=== PATIENT | male | born 2005 | race Caucasian/White ===

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

== ENCOUNTER 2024-11-05 18:22 | Emergency (ER) | payer OTHER, SELFPAY ==
--- NOTE | ~2024-11-05 | XR_ITS ---
XR chest 2V Ordering provider: Uday Red APRN History: 19 years Male with . wheezing, cough for 2 weeks, hx asthma . Comparison: None. FINDINGS: MEDIASTINUM: The cardiac silhouette is not enlarged. LUNGS: Hyperinflated lungs. No infiltrates, effusions or pneumothorax. OTHER: Lucency projected over the upper abdomen is most likely in the posterior sulcus of the lungs. No definite free air under the diaphragm. IMPRESSION: No acute cardiopulmonary pathology. Reviewed, dictated and finalized at location A.
[2024-11-05 18:37] VITALS: BP 116/63; PULSE 73; RESP 16; TEMP 36.4; O2SAT 99
[2024-11-05 18:50] VITALS: PULSE 73; RESP 16; O2SAT 99
[2024-11-05] MEDS: IPRATROPIUM 0.5 MG/ALBUTEROL SULFATE 2.5 MG AMPUL.NEB 3 ML INHALATION ×2 (19:36→20:12)
[2024-11-05] MEDS: methylPREDNISolone SOD SUCC 125 MG VIAL IM (20:13)
[2024-11-05 20:15] VITALS: PULSE 76; RESP 18; O2SAT 100
--- NOTE | 2024-11-05 20:27 | ED_ITS ---
HPI - URI/Sore Throat General Chief Complaint: Upper Respiratory Infection Stated Complaint: cough Source: patient Mode of arrival: ambulatory Limitations: no limitations History of Present Illness HPI Narrative: 19-year-old male presents [facility] complaining of a cough for the last month. Patient reports he thought he had upper respiratory symptoms that turned into a sinus infection. Patient had a leftover Z-Julio and finish the course 2 days ago and states that is upper respiratory symptoms have improved. Patient reports still having a cough and feeling wheezy. Patient does have a history of asthma and takes inhalers as directed. Patient denies any shortness of breath, or chest pain. Patient denies any fevers, body aches, chills, nausea, vomiting, any other symptoms. Related Data Home Medications Medication Instructions Recorded Confirmed Last Taken Type albuterol sulfate 90 mcg/actuation 1 inh inhalation Q4H 06/14/23 11/20/23 Unknown History aerosol inhaler cetirizine 10 mg tablet (Zyrtec) 10 mg PO DAILY PRN Allergic 06/14/23 11/20/23 Unknown History Symptoms Allergies Allergy/AdvReac Type Severity Reaction Status Date / Time lactase (From Dairy Aid) Allergy Anaphylaxis Verified 11/05/24 18:58 Review of Systems Review of Systems: CONSTITUTIONAL: Denies fever, chills, body aches, or sweats. EYES: Denies visual changes, redness, or discharge. ENT: Negative for for rhinorrhea, congestion, sore throat, or otalgia. CARDIOVASCULAR: Denies chest pain, palpitations, or edema. RESPIRATORY: Positive for cough and wheezing. Negative for dyspnea. GASTROINTESTINAL: Denies abdominal pain, nausea, vomiting, or diarrhea. GENITOURINARY: Denies dysuria or hematuria. SKIN: Denies rash or itching. MUSCULOSKELETAL: Denies back pain, joint pain, or myalgia. NEUROLOGIC: Denies headache, numbness, or weakness. PSYCHIATRIC: Denies anxiety or depression. All other systems reviewed are negative, except as documented in HPI. COUNTS INCLUDE 234 BEDS AT THE [facility] Past Medical History Medical History Aftercare following surgery of teeth, oral cavity or digestive system (~2019) Canine tooth pulled down Allergies Asthma Family History Family History Father Asthma Mother Asthma Grandparent Liver cancer Social History Social History Social History: Caffeine-Coffee daily Smoking status: Never smoker Alcohol intake: current Alcohol use details: 2-3x weekly, vodka,beer Substance use: never Substance use type: does not use Do You Feel Safe in your Home?: Yes Lack of Transportation: No Lack of Food: Never True Current Housing: I Have Housing Concerned About Future Housing: No Difficulty Paying Gas/Electric Bills: No Difficulty Paying for Meds: No Currently Unemployed: No Education: High School Diploma/GED Difficulty w/ Childcare or Family Care: No Living arrangements: with friend(s) Occupation/Education: student Gender identity (if verbalized by the patient): Male Agree to blood products: Yes Comments At the time of my signature, I reviewed and agree with the nursing past medical, surgical, social, and family history. There is no relevant family history pertinent to the patient complaint. Exam Narrative: GENERAL: This is a well-nourished, well-developed adult, in no apparent distress. They are non ill-appearing, nontoxic appearing. HEAD: normocephalic, atraumatic. EYES: Sclera clear/white. Vision is grossly intact. Conjunctiva normal bilaterally. Extraocular movements intact. EARS: External ears normal, auditory canals clear and without drainage, TMs without erythema or perforation. Hearing grossly intact. NOSE: External nose normal with no obvious nasal discharge, nasal turbinates without redness or swelling, no rhinorrhea. THROAT: Mucous membranes moist, posterior pharynx without redness or swelling. No exudate Uvula is midline. Postnasal drip present. NECK: Neck supple, non-tender without lymphadenopathy, masses or thyromegaly. CARDIOVASCULAR: Regular rate and rhythm without murmurs, gallops, or rubs. RESPIRATORY: Expiratory wheezes heard throughout patient's lungs. Breath sounds equal bilaterally. No rales, or rhonchi. Respiratory rate normal, respiratory effort nonlabored, no respiratory distress, no accessory muscle use, no retractions. SKIN: warm, Dry, intact with no suspicious lesions or rash, good texture and turgor. NEURO: awake, alert, and oriented to person, place and time. There were no obvious focal neurologic abnormalities. EXTREMITIES: No joint tenderness, effusion, or edema noted. BACK: Nontender without deformity. Course Course Emergency Course: Portions of this record may have been created with voice recognition software Level of Care: Express Care Visit Vital Signs Vital signs: Vital Signs Temperature 97.6 F 11/05/24 18:37 Pulse Rate 73 11/05/24 18:37 Respiratory Rate 16 11/05/24 18:37 Blood Pressure 116/63 11/05/24 18:37 Pulse Oximetry 99 11/05/24 18:37 Temperature 97.6 F 11/05/24 18:37 Pulse Rate 73 11/05/24 18:37 Respiratory Rate 16 11/05/24 18:37 Blood Pressure 116/63 11/05/24 18:37 Pulse Oximetry 99 11/05/24 18:37 Oxygen Delivery Room Air 11/05/24 18:50 MDM - URI/Sore Throat MDM Narrative Medical decision making narrative: Chest x-ray is negative for any acute findings or pneumonia. Patient given 2 nebulizer treatments and a shot of Solu-Medrol for symptoms. Patient reports feeling much better. Repeat auscultation shows improved aeration and decreased wheezing and patient's lungs. Will send patient home on prednisone starting tomorrow. Will refill patient's prescription for albuterol nebulizer. Likely patient has an asthma exacerbation. Discussed physical exam findings. Advised supportive measures and signs/symptoms to go to the ER. Pt is appropriate for outpt treatment and f/u. Differential Diagnosis Differential diagnosis: Likely bronchitis and other (Asthma, pneumonia) Imaging Data Radiologist's impression: ITS Impressions Chest X-Ray 11/05/24 19:32 IMPRESSION: No acute cardiopulmonary pathology. Discharge Plan Discharge Clinical Impression: Asthma exacerbation Qualifiers: Asthma severity: moderate Asthma persistence: persistent Qualified Code(s): J45.41 - Moderate persistent asthma with (acute) exacerbation Patient Disposition: Home Condition: Stable Instructions: Asthma (ED) Additional Instructions: Chest x-ray was negative for any pneumonia or any other acute findings. Continues your inhaler at home as directed. I Have refilled her prescription for your albuterol nebulizer. Use as directed. Start the prednisone tomorrow. Take it in the morning and with food. Follow-up with primary care provider for further management of your asthma in 3-5 days. If your symptoms worsen, you develop worsened shortness of breath, wheezing, fevers, unable to speak in full sentences, chest pain, or any other concerns please go to the ER immediately Patient Language: Wolof Prescriptions: New albuterol sulfate 2.5 mg /3 mL (0.083 %) solution for nebulization 2.5 mg inhalation Q4H PRN (Reason: shortness of breath or wheezing) Qty: 90 0RF prednisone 20 mg tablet 40 mg PO DAILY 5 Days Qty: 10 0RF No Action albuterol sulfate 90 mcg/actuation HFA aerosol inhaler 1 inh inhalation Q4H cetirizine [Zyrtec] 10 mg tablet 10 mg PO DAILY PRN (Reason: Allergic Symptoms) epinephrine [Auvi-Q] 0.3 mg/0.3 mL auto-injector 0.3 mg IM ONCE Qty: 2 0RF Rx Instructions: as a single dose; may repeat once bupropion HCl 150 mg tablet extended release 24 hr 150 mg PO QAM Qty: 30 2RF Follow-up/Referrals: Dajuan Pacheco DO [Primary Care Provider] - Time of Disposition: 20:44
[2024-11-05 20:40] VITALS: PULSE 75; RESP 18; O2SAT 100
== END 2024-11-05 20:47 | disposition home or self-care (01) ==
PROVIDERS: PCP Internal Medicine
DX: J45.41 Moderate persistent asthma with (acute) exacerbation (principal)
CPT/HCPCS: 71046; 94640; 96372; 99213; G0463; J2919

== ENCOUNTER 2025-04-29 14:10 | Outpatient (CLI) | payer OTHER, SELFPAY ==
--- NOTE | ~2025-04-29 | US_ITS ---
US scrotum doppler INDICATION: Left testicular pain. No injury. TECHNIQUE: Testicular sonogram utilizing grayscale and color Doppler FINDINGS: The testes are normal in size and appearance. No focal lesions are seen. The right testes measures 4.8 x 2.8 x 2.5 cm centimeters, and the left testis measures 3.4 x 3.6 x 2.2 cm cm. There is normal vascular flow to both testes. The right and left epididymides appear normal. There is no varicocele or hydrocele. IMPRESSION: 1. NORMAL TESTICULAR ULTRASOUND. Reviewed, dictated and finalized at location O. RT[employer]
== END 2025-04-29 14:11 | disposition home or self-care (01) ==
LOC: GOSHIMG 14:10
PROVIDERS: PCP Internal Medicine; Visit Provider Nurse Practitioner
DX: N50.812 Left testicular pain (principal)
CPT/HCPCS: 76870; 93976